=== PATIENT | male | born 1940 | race Caucasian/White ===

== ENCOUNTER 2016-05-19 15:35 | Emergency (ER) | payer OTHER, MEDICARE ==
[~2016-05-19] VITALS: Ht 182.9 cm; Wt 127.0 kg
[~2016-05-19 15:35] MED LIST: ASPIRIN325 M2 PO; CARDIZEM CD300 M1 PO; CORTISONE28 GM TOP; COSAMIN DS CAP1 EACH PO; DAILY MULTIPLE1 EACH PO; DIOVAN HCT 1601 EAC1 PO; ELIQUIS5 M1 PO; FISH OIL 1,4001 EACH PO; FLEXERIL10 MG PO; HEPARIN-NS25000 UNIT IV; KEFLEX250 M1 PO; METFORMIN HCL500 M3 PO; METOPROLOL TART25 M1 PO; NABUMETONE750 M1 PO; OMEPRAZOLE40 M1 PO; PREDNISONE50 MG PO; PROAIR HFA8.5 GM INH; ROBITUSSIN W/CO10 ML PO; TOPROL XL50 M1 PO; VALSARTAN-HCTZ1 EAC1 PO; VITAMIN D31000 UNI1 PO; [UNRECOGNIZED DRUG - CODE] IV; cardizem IV
[2016-05-19 15:50] VITALS: BP 163/101
--- NOTE | 2016-05-19 16:01 | ED CARDIAC/CP/PALPITATIONS ---
History of Present Illness General Chief Complaint: General Adult Stated Complaint: PT IS HAVING CHEST PAIN Source: patient, old records Exam Limitations: no limitations Vital Signs & Intake/Output Vital Signs & Intake/Output Vital Signs Date Time Temp Pulse Resp B/P Pulse O2 O2 Flow FiO2 Ox Delivery Rate 05/19 1728 Room Air 05/19 1550 97.7 102 20 163/101 95 Room Air Allergies Coded Allergies: Penicillins (ANAPHYLAXIS 05/19/16) Reconcile Medications Albuterol Sulfate (Proair Hfa) 8.5 GM HFA.AER.AD 2 PUF INH Q4-6 PRN PRN ASTHMA (Reported) Apixaban (Eliquis) 5 MG TABLET 1 TAB PO BID BLOOD THINNER (Reported) Cholecalciferol (Vitamin D3) (Vitamin D3) 1,000 UNIT CAPSULE 1 CAP PO DAILY SUPPLEMENT (Reported) Diltiazem HCl (Cardizem Cd) 300 MG CAP.ER.24H 1 CAP PO DAILY HEART/BP ( Reported) Metformin HCl (Unknown Strength) TABLET (Unknown Dose) PO BID DN (Reported) Metoprolol Succ XL (Toprol Xl) 50 MG TAB 1 TAB PO QAM HEART/BP (Reported) Multivitamin (Daily Multiple Vitamin) 1 EACH TABLET 1 TAB PO DAILY SUPPLEMENT (Reported) Taylor-3/Dha/Epa/Fish Oil (Fish Oil 1,400 MG Softgel) 900 MG (253 MG-647 MG)-1, 400 MG CAPSULE. 2 CAP PO QAM SUPPLEMENT (Reported) Omeprazole 40 MG CAPSULE. 1 CAP PO DAILY REFLUX (Reported) Valsartan/Hydrochlorothiazide (Diovan Hct 160-25 MG Tablet) 160 MG-25 MG TABLET 1 TAB PO DAILY BP (Reported) Triage Note: TRIAGE: PT TO ER C/C SOB AT REST AND EXERTION, ONSET 02:00. DENIES ANY PAIN STATES ONLY FEELS "DISCOMFORT" AND WHEN HE DESCRIBES THE "DISCOMFORT" HE ONLY SPEAKS OF HIS DIFFICULTY BREATHING. R/A SATS WNL, PT SPEAKING IN COMPLETE SENTENCES AT TRIAGE, SKIN COLOR GOOD. Triage Nurses Notes Reviewed? yes Onset: Abrupt Duration: since 2 AM Timing: multiple episodes today Quality/Severity: mild Activities at Onset: sleep Associated Symptoms: palpitations HPI: This is a 75 year old male with history of A. fib diagnosed July 2015 on Cardizem and Xarelto who presents to the ER for treatment of shortness of breath which woke him from sleep at 2 AM. No chest pain but felt palpitations. States he is under a lot of stress. No fever or chills. Denies shortness of breath, cough or productive sputum. He does not use a CPAP machine. Past History Travel History Traveled to [place] past 21 day No Medical History Any Pertinent Medical History? 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 No Review of Systems Review of Systems Constitutional: Denies: chills, malaise. EENTM: Reports: no symptoms. Respiratory: Denies: cough, short of breath. Cardiovascular: Reports: palpitations. Denies: chest pain. GI: Denies: abdominal pain. Genitourinary: Reports: no symptoms. Musculoskeletal: Reports: no symptoms. Skin: Reports: no symptoms. Neurological/Psychological: Reports: anxiety. Hematologic/Endocrine: Denies: bleeding, polyuria. Immunologic/Allergic: Denies: splenectomy. All Other Systems: Reviewed and Negative Physical Exam Physical Exam General Appearance: well developed/nourished, alert, awake, mild distress, obese Head: atraumatic, normal appearance Eyes: Bilateral: normal appearance, PERRL, EOMI. Ears, Nose, Throat: normal ENT inspection, hearing grossly normal Neck: normal inspection, supple, full range of motion Respiratory: normal breath sounds, chest non-tender, no respiratory distress Cardiovascular: tachycardia, irregularly irregular Peripheral Pulses: 2+ radial (R), 2+ radial (L) Gastrointestinal: soft, non-tender Extremities: normal inspection, normal capillary refill, normal range of motion, no edema Neurologic/Psych: awake, alert, oriented x 3 Skin: intact, normal color, warm/dry Core Measures ACS in differential dx? No Severe Sepsis Present: No Septic Shock Present: No Progress Differential Diagnosis: AMI, atrial fibrillation, CHF/pulm edema, pneumothorax, pulmonary embolism Plan of Care: Orders Procedure Date/time Status THYROID STIMULATING HORMONE 05/19 1614 Active TROPONIN LEVEL 05/19 1614 Active PARTIAL THROMBOPLASTIN TIME 05/19 1614 Complete PROTHROMBIN TIME 05/19 1614 Complete FREE T4 05/19 1614 Active COMPREHENSIVE METABOLIC PANEL 05/19 161 Active CBC WITHOUT DIFFERENTIAL 05/19 1614 Complete B-TYPE NATRIURETIC PEP (BNP) 05/19 1614 Active EKG 05/19 1537 Active Laboratory Tests 05/19/16 1622: Anion Gap 11, Estimated GFR > 60, BUN/Creatinine Ratio 22.7, Glucose 96, Calcium 9.4, Total Bilirubin 0.5, AST 28, ALT 47, Alkaline Phosphatase 78, Troponin I < 0.01, Wri-T-Pdzzciddbbq Pept 348 H, Total Protein 7.0, Albumin 4.1, Globulin 2.9, Albumin/Globulin Ratio 1.4, TSH Pending, Free T4 1.17, CBC w Diff NO MAN DIFF REQ, RBC 5.21, MCV 88.0, MCH 28.5, RDW 14.7 H, MPV 8.4, Gran % 59.1, Lymphocytes % 24.2, Monocytes % 12.7 H, Eosinophils % 3.0, Basophils % 1.0, Absolute Granulocytes 4.2, Absolute Lymphocytes 1.7, Absolute Monocytes 0.9 H, Absolute Eosinophils 0.2, Absolute Basophils 0.1, PUBS MCHC 32.4 L 05/19/165: PT 15.3 H, INR 1.46 H, APTT 40 H Initial ED EKG: AFIB, st depressions lateral leads Prior EKG: unchanged Rhythm Strip: atrial fibrillation Comments: PATIENT: JOSÉ MIGUEL PADILLA PRESENT AGE: 75 PATIENT ACCOUNT NO: [id number] : 40 LOCATION: [facility] ORDERING PHYSICIAN: RACHEL ASTORGA MD SERVICE DATE: 05/19/16-1614 EXAM TYPE: RAD - XRY-PORTABLE CHEST XRAY EXAMINATION: XR PORTABLE CHEST CLINICAL INFORMATION: Dyspnea. COMPARISON: 07/23/2015 TECHNIQUE: Portable AP view of the chest was obtained. FINDINGS: There is some mild upper zone redistribution of pulmonary blood flow which may be indicative of mildly elevated left ventricular end-diastolic pressure. There is no gross pulmonary edema. The heart is enlarged. No definite effusions are seen. IMPRESSION: Upper zone redistribution suggesting mildly elevated left ventricular end-diastolic pressure. DICTATED BY: MADDISON WILLOUGHBY MD DATE/TIME DICTATED:05/19/161647 MATRIX DRIER TENDER:RUBINA DATE/TIME TRANSCRIBED:05/19/161647 CONFIDENTIAL, DO NOT COPY WITHOUT APPROPRIATE AUTHORIZATION. <Electronically signed in Other Vendor System> SIGNED BY: MADDISON WILLOUGHBY MD 05/19/16 1706 Departure Departure Time of Disposition: 1731 Disposition: HOME OR SELF CARE Condition: Stable Clinical Impression Primary Impression: Rapid atrial fibrillation Referrals: Bolivar MCKEON MD, MD,PRATIK Reyes (PCP/Family) Additional Instructions: Follow-up with your appointment in the office with Dr. Mckeon on Tuesday. Return to the ER for any changing or worsening symptoms. Departure Forms: Customer Survey General Discharge Information Critical Care Note Critical Care Note Critical Care Time: non-applicable
[2016-05-19 16:37] LABS: ABSOLUTE BASOPHIL COUNT 0.1 /CUMM (0.0-0.2); ABSOLUTE EOSINOPHIL COUNT 0.2 /CUMM (0.0-0.7); ABSOLUTE GRANULOCYTE CT 4.2 /CUMM (1.4-6.5); ABSOLUTE LYMPH COUNT 1.7 /CUMM (1.2-3.4); ABSOLUTE MONOCYTE COUNT 0.9 /CUMM (0.10-0.60); GRANULOCYTE % 59.1 % (42.2-75.2); HEMATOCRIT 45.8 % (42-52); MEAN CORPUSCULAR HGB 28.5 PG (27.0-31.0); MEAN CORPUSCULAR HGB CONC 32.4 G/DL (33.0-37.0); MEAN PLATELET VOLUME 8.4 FL (7.4-10.4); PLATELET COUNT 287 /CUMM (130-400); RBC DISTRIBUTION WIDTH 14.7 % (11.5-14.5); RED BLOOD CELL CT 5.21 /CUMM (4.70-6.10); WHITE BLOOD CELL COUNT 7.1 /CUMM (4.8-10.8)
[2016-05-19 16:54] LABS: PT 15.3 SEC (9.4-12.5); PTT 40 SEC (25-37)
--- NOTE | 2016-05-19 17:06 | RADIOLOGY REPORT ---
EXAMINATION: XR PORTABLE CHEST CLINICAL INFORMATION: Dyspnea. COMPARISON: 07/23/2015 TECHNIQUE: Portable AP view of the chest was obtained. FINDINGS: There is some mild upper zone redistribution of pulmonary blood flow which may be indicative of mildly elevated left ventricular end-diastolic pressure. There is no gross pulmonary edema. The heart is enlarged. No definite effusions are seen. IMPRESSION: Upper zone redistribution suggesting mildly elevated left ventricular end-diastolic pressure.
== END 2016-05-19 17:40 ==
LOC: ERH 15:35
PROVIDERS: Emergency Medicine
DX: I48.91 Unspecified atrial fibrillation (principal)
CPT/HCPCS: 93005; 93010

== ENCOUNTER 2016-08-20 14:19 | Emergency (ER) | payer OTHER, MEDICARE ==
[~2016-08-20] VITALS: Ht 182.9 cm; Wt 127.0 kg
[2016-08-20] MEDS ORDERED: NABUMETONE750 M1 PO (15:27)
[2016-08-20 15:40] LABS: ABSOLUTE BASOPHIL COUNT 0 /CUMM (0.0-0.2); ABSOLUTE EOSINOPHIL COUNT 0.1 /CUMM (0.0-0.7); ABSOLUTE GRANULOCYTE CT 5.2 /CUMM (1.4-6.5); ABSOLUTE LYMPH COUNT 1.5 /CUMM (1.2-3.4); ABSOLUTE MONOCYTE COUNT 0.8 /CUMM (0.10-0.60); BASOPHIL % 0.4 % (0.0-2.0); EOSINOPHIL % 1.7 % (0-5); GRANULOCYTE % 67.6 % (42.2-75.2); HEMATOCRIT 40.8 % (42-52); MEAN CORPUSCULAR HGB CONC 32.3 G/DL (33.0-37.0); MEAN CORPUSCULAR VOLUME 83.6 FL (80.0-94.0); MEAN PLATELET VOLUME 8.2 FL (7.4-10.4); PLATELET COUNT 262 /CUMM (130-400); RBC DISTRIBUTION WIDTH 16.8 % (11.5-14.5); RED BLOOD CELL CT 4.88 /CUMM (4.70-6.10); WHITE BLOOD CELL COUNT 7.8 /CUMM (4.8-10.8)
--- NOTE | 2016-08-20 15:43 | ED CARDIAC/CP/PALPITATIONS ---
History of Present Illness General Chief Complaint: Chest Pain Stated Complaint: CP Source: patient, old records Exam Limitations: no limitations Vital Signs & Intake/Output Vital Signs & Intake/Output Vital Signs Date Time Temp Pulse Resp B/P B/P Pulse O2 O2 Flow FiO2 Mean Ox Delivery Rate 08/20 1835 90 24 162/88 96 Room Air 08/20 1426 97.6 100 20 158/100 96 Room Air Allergies Coded Allergies: Penicillins (ANAPHYLAXIS 05/19/16) Reconcile Medications Albuterol Sulfate (Proair Hfa) 8.5 GM HFA.AER.AD 2 PUF INH Q4-6 PRN PRN ASTHMA (Reported) Apixaban (Eliquis) 5 MG TABLET 1 TAB PO BID BLOOD THINNER (Reported) Cholecalciferol (Vitamin D3) (Vitamin D3) 1,000 UNIT CAPSULE 1 CAP PO DAILY SUPPLEMENT (Reported) Diltiazem HCl (Cardizem Cd) 300 MG CAP.ER.24H 1 CAP PO DAILY HEART/BP ( Reported) Metformin HCl 500 MG TABLET 2 TAB PO BID DN (Reported) Metoprolol Succ XL (Toprol Xl) 50 MG TAB 1 TAB PO QAM HEART/BP (Reported) Multivitamin (Daily Multiple Vitamin) 1 EACH TABLET 1 TAB PO DAILY SUPPLEMENT (Reported) Nabumetone 750 MG TABLET 2 TAB PO BID UNKNOWN (Reported) Cuttyhunk-3/Dha/Epa/Fish Oil (Fish Oil 1,400 MG Softgel) 900 MG (253 MG-647 MG)-1, 400 MG CAPSULE. 2 CAP PO QAM SUPPLEMENT (Reported) Omeprazole 40 MG CAPSULE. 1 CAP PO DAILY REFLUX (Reported) Valsartan/Hydrochlorothiazide (Diovan Hct 160-25 MG Tablet) 160 MG-25 MG TABLET 2 TAB PO DAILY BP (Reported) Triage Note: PT TO ED C/O CHEST PAIN SINCE LAST NIGHT. PAIN DOES NOT RADIATE. PAIN COMES AND GOES. DENIES N/V. PT ALSO STATES "MY BREATHING IS OFF". C/O EXERTIONAL SOB. Triage Nurses Notes Reviewed? yes HPI: Patient presents with intermittent substernal chest pain since yesterday. The pain lasts anywhere from 5-20 minutes and then goes away. No aggravating or mitigating factors. There is no radiation. The pain is a squeezing pain in nature. While he has the pain the pain is 6 out of 10. When the pain goes away it is a 0 out of 10. Patient also notices that he gets short of breath with exertion since yesterday. There is no orthopnea. No palpitations. There is no fevers or chills. Past History Travel History Traveled to [place] past 21 day No Medical History Any Pertinent Medical History? 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 No Review of Systems Review of Systems Constitutional: Reports: no symptoms. EENTM: Reports: no symptoms. Respiratory: Reports: see HPI, short of breath. Cardiovascular: Reports: see HPI, chest pain. GI: Reports: no symptoms. Genitourinary: Reports: no symptoms. Musculoskeletal: Reports: see HPI. Skin: Reports: no symptoms. Neurological/Psychological: Reports: no symptoms. Hematologic/Endocrine: Reports: no symptoms. Immunologic/Allergic: Reports: no symptoms. All Other Systems: Reviewed and Negative Physical Exam Physical Exam General Appearance: well developed/nourished, alert, awake, mild distress Head: atraumatic, normal appearance Eyes: Bilateral: PERRL, EOMI. Ears, Nose, Throat: normal pharynx, normal ENT inspection, hearing grossly normal Neck: normal inspection, supple, full range of motion, NO JVD Respiratory: normal breath sounds, chest non-tender, no respiratory distress, lungs clear Cardiovascular: regular rate/rhythm, normal peripheral pulses Gastrointestinal: normal bowel sounds, soft, non-tender, no organomegaly Back: normal inspection Extremities: normal inspection, normal capillary refill, normal range of motion, EDEMA R>L Neurologic/Psych: no motor/sensory deficits, awake, alert, oriented x 3, normal mood/affect Skin: intact, normal color, warm/dry Lymphatic: no anterior cervical minesh Core Measures ACS in differential dx? Yes Severe Sepsis Present: No Septic Shock Present: No Progress Differential Diagnosis: AMI, hyperthyroid, myocarditis, pericarditis, pneumonia, pneumothorax, pulmonary embolism, DVT Plan of Care: Orders Procedure Date/time Status Heart Healthy Diet 08/21 B Active TROPONIN LEVEL 08/20 1827 Complete TROPONIN LEVEL 08/20 1500 Complete PROTHROMBIN TIME 08/20 1500 Complete COMPREHENSIVE METABOLIC PANEL 08/20 1500 Complete CBC WITHOUT DIFFERENTIAL 08/20 1500 Complete B-TYPE NATRIURETIC PEP (BNP) 08/20 1500 Complete EKG 08/20 1420 Active Laboratory Tests 08/20/16 1830: Troponin I < 0.01 08/20/16 1530: Anion Gap 10, Estimated GFR > 60, BUN/Creatinine Ratio 20.9, Glucose 91, Calcium 8.9, Total Bilirubin 0.8, AST 36, ALT 68, Alkaline Phosphatase 72, Troponin I < 0.01, Vhm-M-Snkytbaufet Pept 534 H, Total Protein 6.6, Albumin 4.0, Globulin 2.6, Albumin/Globulin Ratio 1.5, PT 18.3 H, INR 1.75 H, CBC w Diff NO MAN DIFF REQ, RBC 4.88, MCV 83.6, MCH 27.0, RDW 16.8 H, MPV 8.2, Gran % 67.6, Lymphocytes % 19.7 L, Monocytes % 10.6 H, Eosinophils % 1.7, Basophils % 0.4, Absolute Granulocytes 5.2, Absolute Lymphocytes 1.5, Absolute Monocytes 0.8 H, Absolute Eosinophils 0.1, Absolute Basophils 0, PUBS MCHC 32.3 L Diagnostic Imaging: Viewed by Me: Radiology Read, Ultrasound. Discussed w/RAD: Radiology Read, Ultrasound. Radiology Impression: PATIENT: JOSÉ MIGUEL PADILLA PRESENT AGE: 75 PATIENT ACCOUNT NO: [id number] : 40 LOCATION: [facility] ORDERING PHYSICIAN: BURKE ORTIZ MD SERVICE DATE: 08/20/16-6598 EXAM TYPE: US - US-DUPLEX VENOUS EXTREM UNI EXAMINATION: US TRIPLEX LOWER EXTREMITY, RIGHT CLINICAL INFORMATION: Right lower extremity edema. COMPARISON: None. TECHNIQUE: Color-flow triplex imaging with spectral analysis and compression Doppler were performed on the right lower extremity. FINDINGS: Respiratory variation, normal compression and augmented flow are noted throughout the left lower extremity. The visualized common femoral vein, femoral vein, profunda femoral vein, popliteal vein and midcalf peroneal and posterior tibial venous segments show no evidence of deep venous thrombosis. There is no Beth's cyst. IMPRESSION: Normal triplex scan without evidence of deep venous thrombosis involving the lower extremity. DICTATED BY: MAYO TAMEZ MD DATE/TIME DICTATED:08/20/161647 NUMERICAL CONTROL OPERATOR:RUBINA DATE/TIME TRANSCRIBED:08/20/161647 CONFIDENTIAL, DO NOT COPY WITHOUT APPROPRIATE AUTHORIZATION. <Electronically signed in Other Vendor System> SIGNED BY: MAYO TAMEZ MD 08/20/16 165 CXR Impression: PATIENT: JOSÉ MIGUEL PADILLA PRESENT AGE: 75 PATIENT ACCOUNT NO: [id number] : 40 LOCATION: [facility] ORDERING PHYSICIAN: BURKE ORTIZ MD SERVICE DATE: 08/20/16 EXAM TYPE: RAD - XRY-CHEST XRAY, PA AND LATERAL EXAMINATION: XR CHEST CLINICAL INFORMATION: Shortness of breath. COMPARISON: Portable chest x-ray 05/19/2016. TECHNIQUE: PA and lateral views of the chest were obtained. FINDINGS: The lungs are symmetrically expanded. There are streaky linear opacities within the bilateral lung bases which may reflect linear atelectasis or scarring. No focal airspace consolidation is identified and there are no pleural effusions or pneumothoraces. Cardiomediastinal contours are stable. There is stable prominence of the cardiac silhouette, without overt pulmonary edema. No acute osseous abnormality is identified. IMPRESSION: No acute pulmonary process. Streaky linear opacities within the bilateral lung bases may reflect atelectasis and/or scarring. DICTATED BY: MAYO TAMEZ MD DATE/TIME DICTATED:08/20/161536 NUMERICAL CONTROL OPERATOR:RUBINA DATE/TIME TRANSCRIBED:08/20/161536 CONFIDENTIAL, DO NOT COPY WITHOUT APPROPRIATE AUTHORIZATION. <Electronically signed in Other Vendor System> SIGNED BY: MAYO TAMEZ MD 08/20/16 1545 Initial ED EKG: NSR, nonspecific ST T wave chg Prior EKG: unchanged Rhythm Strip: normal sinus rhythm Departure Departure Disposition: HOME OR SELF CARE Condition: Stable Clinical Impression Primary Impression: Chest pain, unspecified Qualifiers: Chest pain type: other chest pain Qualified Code: R07.89 - Other chest pain Referrals: GLADIS HERNANDEZ,MARY QUIROZ MD,PRATIK Reyes (PCP/Family) Additional Instructions: Return if symptoms worsen or for any concerns. Do not take your metformin this weekend and have your doctor repeat her kidney function on Tuesday. Departure Forms: Customer Survey General Discharge Information Critical Care Note Critical Care Note Critical Care Time: non-applicable
[2016-08-20 15:45] LABS: PT 18.3 SEC (9.4-12.5)
--- NOTE | 2016-08-20 16:51 | ULTRASOUND REPORT ---
EXAMINATION: US TRIPLEX LOWER EXTREMITY, RIGHT CLINICAL INFORMATION: Right lower extremity edema. COMPARISON: None. TECHNIQUE: Color-flow triplex imaging with spectral analysis and compression Doppler were performed on the right lower extremity. FINDINGS: Respiratory variation, normal compression and augmented flow are noted throughout the left lower extremity. The visualized common femoral vein, femoral vein, profunda femoral vein, popliteal vein and midcalf peroneal and posterior tibial venous segments show no evidence of deep venous thrombosis. There is no Beth's cyst. IMPRESSION: Normal triplex scan without evidence of deep venous thrombosis involving the lower extremity.
--- NOTE | 2016-08-20 18:18 | CT SCAN REPORT ---
EXAMINATION: CT ANGIOGRAM OF THE CHEST WITH AND WITHOUT CONTRAST (CT PULMONARY ANGIOGRAM FOR PE) CLINICAL INFORMATION: CHEST PAIN AND MEZA
COMPARISON: CT of chest 04/02/2016. Chest x-ray 08/20/2016 TECHNIQUE: Prior to contrast administration, noncontrast localization images were obtained. Subsequently, multidetector volumetric imaging was performed from the thoracic inlet to below the diaphragms following the administration of 109 mL Omnipaque 350 intravenous contrast. No contrast reaction reported. Sagittal, coronal, and MIP oblique sagittal reformatted images were obtained on the CT workstation, uploaded to PACS, and reviewed. Total exam dose-length product 580.23 mGy-cm. FINDINGS: QUALITY OF STUDY/CONTRAST BOLUS: Satisfactory PULMONARY ARTERIES: No central or segmental pulmonary emboli. THORACIC AORTA: Atherosclerotic vascular wall calcifications of aorta and coronary arteries. No aneurysm. LUNG: Small linear opacities at the dependent lung bases bilaterally assessment atelectasis and linear scarring. No acute infiltrate. Central bronchial airways are open. No bronchiectasis. PLEURA: No pleural effusion or pneumothorax. MEDIASTINUM: Normal heart size. No pericardial effusion. No hilar or mediastinal lymphadenopathy. No evidence of septal bowing or right heart strain. CHEST WALL/AXILLA: No axillary or internal mammary lymphadenopathy. OSSEOUS STRUCTURES: Multilevel degenerative change of the spine with disc height narrowing and endplate spurs of the vertebrae. UPPER ABDOMEN: Unremarkable. No reflux of contrast into the hepatic veins to suggest elevated right heart pressures. IMPRESSION: 1. No acute abnormality of chest. No evidence of pulmonary embolism. VTE: negative
[2016-08-20 20:14] VITALS: BP 155/74
== END 2016-08-20 20:15 ==
LOC: ERH 14:19
PROVIDERS: Emergency Medicine
DX: R07.2 Precordial pain (principal); R06.02 Shortness of breath; I48.91 Unspecified atrial fibrillation; I10 Essential (primary) hypertension; J06.9 Acute upper respiratory infection, unspecified; K21.9 Gastro-esophageal reflux disease without esophagitis
CPT/HCPCS: 93005; 93010